=== PATIENT | male | born 1960 | race Caucasian/White ===

== ENCOUNTER 2017-02-15 05:11 | Observation (INO) | payer OTHER, SELFPAY ==
[2017-02-15 05:31] LABS: #Basophils 0.1 thou/uL (0.0-0.2); #Eosinphils 0.2 thou/uL (0.0-0.7); #Lymphocytes 3.2 thou/uL (1.20-3.40); #Monocytes 0.8 thou/uL (0.11-0.59); #Neutrophils 5.3 thou/uL (1.40-6.50); %Basophils 1.1 % (0.0-1.0); %Eosinophils 1.7 % (0.0-10.0); %Lymphocytes 33.9 % (21.0-51.0); %Monocytes 7.9 % (0.0-10.0); %Neutrophils 55.4 % (42.0-75.0); Hemoglobin 14.9 g/dL (14.0-18.0); Mean Corpuscular HGB CONC 33.3 g/dL (32.0-36.0); Mean Corpuscular Hemoglobin 28.5 pg (27.0-31.0); Mean Corpuscular Volume 85.5 fl (80.0-94.0); Mean Platelet Volume 7.5 fL (7.4-10.4); Platelet Count 244 thou/uL (130-400); RBC Distribution Width 12.8 % (11.5-14.5); Red Blood Cell (RBC) Count 5.23 mill/uL (4.70-6.10); White Blood Cell (WBC) Count 9.5 thou/uL (4.8-10.8)
[2017-02-15 05:46] LABS: ALT (SGPT) 76 U/L (8-55); AST (SGOT) 53 U/L (5-34); Albumin 4.2 g/dL (3.5-5.0); Alkaline Phosphatase 59 U/L (40-150); Anion Gap 17 mmol/L (10-20); BUN (Urea Nitrogen) 17 mg/dL (8.4-25.7); Calc. Creatinine Clearance 0 mL/min (70-130); Calcium 9.9 mg/dL (7.8-10.44); Carbon Dioxide 26 mmol/L (22-29); Chloride 98 mmol/L (98-107); Estimated GFR-MDRD 81; Globulin 3.6 g/dL (2.4-3.5); Glucose 252 mg/dL (70-105); Potassium 3.7 mmol/L (3.5-5.1); Protein, Total 7.8 g/dL (6.0-8.3); Sodium 137 mmol/L (136-145)
[2017-02-15 05:48] LABS: CKMB 2.1 ng/mL (0-6.6); Troponin I Less than 0.010 ng/mL (< 0.028)
[2017-02-15] MEDS ORDERED: Nitroglycerin 2% Ointment 1 INCH/1 GM Packet ONE (06:27)
--- NOTE | 2017-02-15 08:00 | RAD ---
CHEST 1 VIEW: DATE: 02/15/17. TIME: 6:03 a.m. HISTORY: Chest pain. FINDINGS: The heart size is normal. The lungs are expanded without focal areas of consolidation, pneumothorax, or pleural effusions. There are degenerative changes in the supine. IMPRESSION: No radiographic evidence of acute cardiopulmonary process. POS: OFF
[2017-02-15] MEDS ORDERED: Ondansetron ODT 4 MG TAB PO PRN (08:03)
[2017-02-15] MEDS ORDERED: Dextrose 5% in Water 1,000 ML IV PRN (08:05)
[2017-02-15] MEDS ORDERED: Dextrose 50% Abboject 50 ML SYRINGE SLOW IVP PRN (08:05)
[2017-02-15] MEDS ORDERED: HumaLOG 300 UNITS/3 ML VIAL SC PRN (08:05)
[2017-02-15 09:31] LABS: Troponin I Less than 0.010 ng/mL (< 0.028)
--- NOTE | 2017-02-15 12:53 | HP ---
CHIEF COMPLAINT: Chest pain. HISTORY OF PRESENT ILLNESS: Mr. Bridger Saunders is a pleasant 56-year-old white male patient with no prior history of coronary artery disease. Mr. Saunders states that during the last 2 days intermitte ntly he has had some retrosternal chest discomfort described at times sharp and other times as throbb ing. It was associated this morning with some shortness of breath and nausea. He was not diaphoreti c. He presented to our ER and has been admitted for a chest pain workup. Several years ago, he had similar type symptoms. At that time, he had a normal stress test. Until r ecently, he had had well controlled type 2 diabetes. However, he changed insurances and therefore bradford d to change doctors and his control has not been as good as it had been in the past when he had an A1 c of 6.1. PHYSICAL EXAMINATION: GENERAL: He is awake and alert, in no distress, not currently having chest discomfort. VITAL SIGNS: Blood pressure is currently 170/80, his pulse rate is 72 and regular, respirations are 18 and not labored. He is afebrile. He has room air sat of 95%. ENT: No erythema or exudate. NECK: Supple. CARDIAC: Heart rhythm is regular without gallop or murmur. LUNGS: Clear but diminished. No rales, rhonchi or wheezes. ABDOMEN: Flat, benign, soft. No guarding, rebound or rigidity. EXTREMITIES: No edema. NEUROLOGIC: No focal deficits. LABORATORY DATA: Chemistries: Sodium 137, potassium 3.7, chloride 98, bicarbonate 26, BUN 17, creat inine 0.96. Random blood glucose is 252. AST slightly elevated at 53. ALT elevated at 76. Troponi ns are less than 0.01 x2. CBC: White count is 9500, hemoglobin 14.9, hematocrit 44.7 with an MCV of 85.5. EKG shows no acute ischemic changes. ASSESSMENT: 1. Atypical chest pain. 2. Type 2 diabetes. 3. Obesity. DISPOSITION: Admit schedule stress Myoview. If negative, discharge. If positive, consult Dr. Javon gomez for cardiac catheterization.
[2017-02-15 12:58] LABS: Troponin I Less than 0.010 ng/mL (< 0.028)
[2017-02-15 15:45] VITALS: BMI 47.9
[2017-02-15 15:46] VITALS: BP 143/70; TEMP 98
--- NOTE | 2017-02-15 16:22 | NM ---
NUCLEAR MEDICINE CARDIAC MYOCARDIAL PERFUSION SPECT EJECTION FRACTION STUDY WALL MOTION CINE: 02/15/17 HISTORY: 56-year-old male with atypical chest pain. History of hypertension and diabetes mellitus. TECHNIQUE: Number of days: One (stress only study). Exercise stress: treadmill. Stress study: Tc99m sestamibi (Cardiolite) dose: 33.0 mCi FINDINGS: CARDIAC (MYOCARDIAL PERFUSION) SPECT Radiopharmaceutical uptake throughout the left ventricular myocardium is homogeneous, with no focal p erfusion defects. EJECTION FRACTION STUDY EF = 56% WALL MOTION CINE Normal. IMPRESSION: Normal. TEDDY Caba POS: YURI
[2017-02-15] MEDS ORDERED: Atorvastatin Calcium 40 MG TAB PO SCH (21:00)
--- NOTE | 2017-02-17 06:07 | HP-2 ---
CODE STATUS: FULL. PRIMARY CARE PHYSICIAN: Dr. Rodríguez. ATTENDING PHYSICIAN: Dr. Vipul Huff. HISTORIAN: Patient. CHIEF COMPLAINT: Chest pain. HISTORY OF PRESENT ILLNESS: This is a 56-year-old male who presents with chest pain, going on for 2 days. He describes the pain as a sharp jolt under his left axilla that occurs more at night when he lays down on his left side and with this arm above his head and when he is carrying his grandchild, t his is not exacerbated with exertion. The pain lasted less than 30 minutes, radiates to mid chest an d neck, and it has not been relieved by anything. He has no history of CAD. 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 ER: In the ER, he received nitro twice and aspirin 324 mg. PAST MEDICAL HISTORY: 1. Diabetes type 2. 2. Gastroesophageal reflux disease. 3. Hypertension. PAST SURGICAL HISTORY: Tonsillectomy. ALLERGIES: No known drug allergies. MEDICATIONS: 1. Aspirin. 2. Losartan and HCTZ. 3. Metformin. 4. Nexium. 5. Fish oil. FAMILY HISTORY: 1. Mother and father with CAD and stroke in their 60s and 70s. 2. Diabetes type 2 in both mother and father. SOCIAL HISTORY: Denies tobacco use. States he drinks alcohol socially, denies drug use. 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 REVIEW OF SYSTEMS: General: Denies fever or chills. Eyes: Denies vision change. ENT: Endorses n elvis congestion. Denies sore throat. Respiratory: Denies cough or congestion. Cardiovascular: En dorses chest pain. Denies palpitations. Gastrointestinal: Endorses nausea. Genitourinary: Denies dysuria. Skin: Denies rash. Musculoskeletal: Endorses pain. Neuro: Denies weakness. Psychiatr ic: Denies anxiety or depression. PHYSICAL EXAMINATION: VITAL SIGNS: Blood pressure 154/71, pulse 75, respirations 22, T-max 97.9, O2 97% on room air. Curr ent weight 163 kilograms. GENERAL: Alert, oriented x4, not in acute distress. Well-developed and appropriately interactive an d obese. EYES: Extraocular muscle intact. Conjunctivae within normal limits. ENT: Nasal mucosa within normal limits. NECK: Supple, without lymphadenopathy or thyromegaly. CARDIOVASCULAR: Regular rate and rhythm without murmur or gallops. Pain on palpation of chest wall underneath left axilla. RESPIRATIONS: Normal effort. Clear to auscultation bilaterally without retraction. ABDOMEN: Soft, bowel sounds heard throughout. No tenderness on palpation, no mass or distension fou nd. EXTREMITIES: No edema. MUSCULOSKELETAL: Structure within normal limits. Muscle strength 5/5. NEUROLOGICAL: Cranial nerves II-XII are intact. GCS was 15. PSYCHIATRIC: Appropriate. LABORATORY DATA: 1. WBC 9.5, hemoglobin 14.9, platelet 244. 2. Sodium 137, chloride 98, potassium 3.7, bicarbonate 26, BUN 17, creatinine 0.96, glucose 256, oksana cium 9.9. 3. AST 53, ALT 76, alkaline phosphatase 59. 4. EKG normal sinus rhythm, left ventricular hypertrophy. 5. CK-MB 2.1, troponin 0.01. ASSESSMENT AND PLAN: 1. Chest pain, rule out atypical chest pain, posterior with position and movement suggesting musculo skeletal in origin; however, the patient does have risk factor for coronary artery disease and associ ated symptom that may be found with CAD. Plan is to do a stress test, trend troponins and do medical management for risk reduction of coronary artery disease. 2. Diabetes, type 2. We will continue sliding scale insulin and continue his metformin at this time . The patient will be establishing with a PCP for further titration. 3. Lipids. We will check as patient has diabetes type 2 and is at risk for CAD. We will start him on a statin and aspirin 81 mg. 4. Hypertension. Continue home medications. May add amlodipine if his blood pressure remains eleva gabriela. 5. Prophylaxis, walking program and Protonix for gastroesophageal reflux disease. DISPOSITION AND LENGTH OF HOSPITAL STAY: Less than 2 days of observation. History and physical exam as well as management discussed with Dr. Huff.
--- NOTE | 2017-02-18 11:56 | DIS-2 ---
DATE OF ADMISSION: 02/15/2017 DATE OF DISCHARGE: 02/15/2017 ADMITTING ATTENDING: Vipul Huff MD DISCHARGE ATTENDING: Vipul Huff MD RESIDENT: Jaxson Courtney M.D. PROCEDURES: 1. Chest x-ray on 02/15/2017. Impression: No radiographic evidence of acute cardiopulmonary proces ses. 2. Nuclear stress test. Impression: Ejection fraction of 56%. Wall motion, normal. Impression: Normal. DISCHARGE MEDICATIONS: 1. Atorvastatin 40 mg oral daily. 2. Nexium 20 mg oral daily. 3. Fish oil 1000 mg oral daily. 4. Aspirin 81 mg oral daily. 5. Metformin 1000 mg oral twice daily. 6. Losartan/hydrochlorothiazide 100/25 mg 1 tablet oral daily. DISCHARGE DIAGNOSES: 1. Atypical chest pain, likely costochondritis. 2. Diabetes type 2. 3. Hyperlipidemia. 4. Hypertension. HISTORY OF PRESENT ILLNESS AND HOSPITAL COURSE: This is a 56-year-old man, who presents with chest p ain described as going over 2 days. He describes the pain that is sharp, shooting down to his left a xilla that occurs more at night when he lays down on his left side with his arm above his head and wh en he is carrying his grandchild, pain is not exacerbated with exertion. The pain lasted less than 3 0 minutes, radiating to the chest and neck, and has not been relieved with anything. He has no histo ry of CAD. He states that recently he has been lifting heavy equipment, and he is presenting to the ER for evaluation of this. In the ER, his EKG was found to be normal sinus rhythm, though he did hav e some left ventricular hypertrophy. Troponins were negative. He was admitted for rule out of this atypical chest pain. By the time he went to the floor, his chest pain had resolved. A nuclear stres s test was done and troponin was repeated x3. It was negative each time and his nuclear stress test came back normal. He was then started on medical management for possible myocardial infarction with aspirin 81 mg and atorvastatin 40 mg both once daily; however, as everything came back negative, it w as most likely that he had suffered from costochondritis, especially with pain exacerbated by movemen t and following after heavy lifting, he was advised on using risp and ibuprofen for the costochondrit is. DISPOSITION: Stable. DISCHARGE INSTRUCTIONS: 1. Location: To home. 2. Diet: As tolerated by heart healthy. 3. Activity: As tolerated. 4. Followup: Followup with PCP, Dr. Rodríguez within 1-2 weeks.
== END 2017-02-15 19:09 | disposition home or self-care (01) ==
LOC: ERS 05:11 → ERHOLD 06:18 → 2SW 14:32
PROVIDERS: ADMIT Family Medicine; ATTEND Family Medicine
DX: R07.89 Other chest pain (principal); E11.9 Type 2 diabetes mellitus without complications; E66.9 Obesity, unspecified; I10 Essential (primary) hypertension; K21.9 Gastro-esophageal reflux disease without esophagitis; Z68.42 Body mass index [BMI] 45.0-49.9, adult; Z82.3 Family history of stroke; Z83.3 Family history of diabetes mellitus; Z90.89 Acquired absence of other organs; Z79.82 Long term (current) use of aspirin; Z79.84 Long term (current) use of oral hypoglycemic drugs; Z79.899 Other long term (current) drug therapy
CPT/HCPCS: 36415; 36416; 71045; 78452; 80053; 82553; 84484; 85025; 93005; 93017; A9500; G0378